=== PATIENT | female | born 1995 | race Caucasian/White ===

== ENCOUNTER 2017-01-01 22:27 | Emergency (ER) | payer MEDICAID ==
[2017-01-01] MEDS ORDERED: KETOROLAC TROMETHAMINE 30 MG/ML VIAL IV ONE (23:36)
--- NOTE | 2017-01-01 23:36 | ERNOTE ---
Headache ER HPI - General Presenting Symptoms: headache Time Seen by Provider: 01/01/17 23:32 Source: patient Exam Limitations: no limitations - Immun/Allergies/Home Medications Immunizations: IMMUNIZATION HX Immunizations Up to Date Yes History of Influenza Vaccine Yes Hx Pneumococcal Vaccination No Allergies/Adverse Reactions: Allergies No Known Allergies Allergy (Verified 01/01/17 22:43) Home Medications: HOME MEDICATIONS Hydrochlorothiazide 12.5 mg PO DAILY 06/20/15 [Last Taken Unknown] - Pain Pain Score: 5 - History of Present Illness Narrative: Pt complains of headache x 2 days. Started in her forehead and had progressed to her face Timing of Headache: gradual Context Headache: Present: new onset Quality: Present: pressure Severity Maximum: Present: moderate Severity-Currently: Present: moderate Headache frequency: Present: occasional headaches Review of Systems - Review of Systems Constitutional: Present: recent illness - Otitis media 2 weeks ago EYE: Absent: vision changes ENT: Present: See HPI Respiratory: Absent: cough Cardiology: Present: no symptoms reported Gastrointestinal/Abdominal: Present: no symptoms reported Genitourinary: Present: no symptoms reported Musculoskeletal: Present: no symptoms reported Skin: Present: no symptoms reported - Patient's Past Medical History Patient History - Medical: Migraines Patient History - Cardiac/Respiratory: Hypertension Patient History - Cancer: No Hx of Cancer Patient History - Surgical Procedures: Other Patient History - Other: None LMP (females 10-50): unknown nexplanon - Social History Living Situations: home Abuse History: No History of abuse Psych History: Hx of Anxiety, Hx of Depression, Hx of Bipolar Disorder Smoking Status: Never smoker Alcohol Use: none Drug Use: none - Immunizations Immunizations Up to Date: Yes Hx Pneumococcal Vaccination: No History of Influenza Vaccine: Yes Physical Exam - Physical Exam General Appearance: Present: wd/wn, alert, mild distress Head Exam: Present: normal inspection, no evidence of injury Eye Exam: Normal inspection: bilateral, PERRL: bilateral, EOMI: bilateral Ears, Nose, Throat: Present: nasal congestion - mild, normal pharynx Neck: Present: normal inspection, nontender Respiratory: Present: no respiratory distress, no accessory muscle use, lungs clear Cardiovascular/Chest: Present: regular rate, rhythm Extremity Exam: Present: normal inspection, no edema Neurological Exam: Present: alert, oriented, normal mood/affect Skin Exam: Present: normal color, warm/dry Lymphatic Exam: Present: no adenopathy ED Progress - Vital Signs Vital Signs: Vital Signs 01/01/17 22:39 Temperature 36.6 C Pulse Rate 95 Respiratory 18 Rate Blood Pressure 152/103 O2 Sat by Pulse 100 Oximetry - Progress/Reassessment Chief Complaint: Headache Departure Clinical Impression: Sinus headache - Departure Disposition: Home self-care Condition: Good Instructions: Sinus Headache Additional Instructions: Take mucinex-d 600 mg twice a day. Buy a sinus rinse kit and flush your sinuses 1-2 times a day. See your regular doctor if not improving
[2017-01-01] MEDS ORDERED: KETOROLAC TROMETHAMINE 30 MG/ML VIAL ONE (23:40)
--- OUTSIDE RECORDS SUMMARY | 2017-01-01 23:48 | XMS REPORT | Clinical Summary ---
:1995 Author Organization [facility] [place] [address] Care Team Providers Name Role Phone Unavailable Primary Care Provider Unavailable Source Comments This disclosure is being made pursuant to the [facility] program and maynot contain all information available regarding this patient.[facility] Allergies Active Allergy Reactions Severity Noted Date Comments Food Anaphylaxis High 08/23/2014 NUTS Current Medications Be aware that medications may not be up to date as of this document. Alwaysverify current medications with the patient. Prescription Sig. Disp. Refills Start Date End Date Status ALBUTEROL SULFATE HFA IN Inhale 2 puffs into Active the lungs every 4 (four) to 6 (six) hours as needed. lisinopril-hydrochlorothi Take 1 tablet by Active azide mouth daily. (PRINZIDE,ZESTORETIC) 10-12.5 MG per tablet fluticasone (FLOVENT HFA) Inhale 1 puff into Active 110 MCG/ACT inhaler the lungs 2 (two) times daily. EPINEPHrine (EPIPEN IJ) Inject as Active directed. Etonogestrel (NEXPLANON) Inject into the Active 68 MG IMPL skin. Active Problems Problem Noted Date Abdominal pain, right upper quadrant 04/29/2011 Overview: Overview: DELBERT RAO MD Abdominal tenderness, right upper quadrant 04/29/2011 Overview: Overview: DELBERT RAO MD Chronic nonalcoholic liver disease 04/29/2011 Overview: Overview: normal lft, seen on US DELBERT RAO MD Family History Medical History Relation Name Comments Asthma Father Hypertension Father Diabetes type II Maternal Grandfather Heart disease Maternal Grandfather Kidney failure Maternal Grandfather Aneurysm Maternal Grandmother Diabetes type II Mother Hypertension Mother Colon cancer Paternal Grandfather Hypertension Sister Diabetes type II Sister Relation Name Status Comments Father Maternal Grandfather Maternal Grandmother Mother Paternal Grandfather Sister Sister Social History Tobacco Use Types Packs/Day Years Used Date Never Smoker Smokeless Tobacco: Never Used Alcohol Use Drinks/Week oz/Week Comments No Sex Assigned at Date Recorded Not on file Last Filed Vital Signs Vital Sign Reading Time Taken Blood Pressure 148/52 08/24/2014 1:15 PM CDT Pulse 84 08/24/2014 1:15 PM CDT Temperature 36.9 C (98.4 F) 08/24/2014 1:15 PM CDT Respiratory Rate - - Oxygen Saturation - - Inhaled Oxygen Concentration - - Weight 142.6 kg (314 lb 6.4 oz) 09/09/2014 10:32 AM CDT Height 177.8 cm (5' 10") 08/24/2014 1:15 PM CDT Body Mass Index 45.11 09/09/2014 10:32 AM CDT Plan of Treatment Health Maintenance Due Date Last Done Comments HPV Vaccine ([id number],M: 9-22) (1 of 3 - Female 3 Dose 2005 Series) CHLAMYDIA SCREENING 2010 Tetanus/Pertussis (1 - Tdap) 2013 Pap Smear 2015 INFLUENZA IMMUNIZATION (#1) 2016 Results Not on filefrom Last 3 Months Insurance Payer Benefit Plan / Subscriber ID Type Phone Address Group [place] [id number] [place] [phone] [address] [place] [address]
[2017-01-02] MEDS ORDERED: ORPHENADRINE CITRATE 30 MG/ML VIAL IV ONE (00:57)
[2017-01-02] MEDS ORDERED: ORPHENADRINE CITRATE 30 MG/ML VIAL ONE (01:00)
[2017-01-02 01:48] VITALS: BP 152/94
== END 2017-01-02 01:47 | disposition home or self-care (01) ==
LOC: ER 22:27
DX: G44.89 Other headache syndrome (principal); I10 Essential (primary) hypertension

== ENCOUNTER 2017-04-21 19:38 | Emergency (ER) | payer MEDICAID ==
[2017-04-21] MEDS ORDERED: ALBUTEROL SULFATE 2.5 MG/0.5 ML VIAL.NEB IH ONE ×2 (20:02)
--- NOTE | 2017-04-21 20:06 | ERNOTE ---
Dyspnea - General Presenting Symptoms: shortness of breath Time Seen by Provider: 04/21/17 19:59 Source: patient Exam Limitations: no limitations - Immun/Allergies/Home Medications Immunizations: IMMUNIZATION HX Immunizations Up to Date Yes History of Influenza Vaccine No Hx Pneumococcal Vaccination No Allergies/Adverse Reactions: Allergies No Known Allergies Allergy (Verified 04/21/17 19:47) Home Medications: HOME MEDICATIONS Hydrochlorothiazide 12.5 mg PO DAILY 06/20/15 [Last Taken Unknown] Albuterol Sulfate [Ventolin HFA] 1 puff IH Q6H PRN #1 inhaler 04/21/17 [Last Taken Unknown] Etonogestrel [Nexplanon] 68 mg SQ DAILY 04/21/17 [Last Taken Unknown] Sertraline HCl [Zoloft] 25 mg PO DAILY 04/21/17 [Last Taken Unknown] - History of Present Illness Narrative: Pt states she has been short of breath for 4-5 days. minimal cough. Severity: mild, moderate Treatment SOLAR ENGINEER: by patient Initiating event: Reports: unknown Frequency of episodes: Reports: no prior episodes Modifying Factors - (Improves): Reports: nothing Modifying Factors (Worsens): Reports: activity Review of Systems - Review of Systems Constitutional: Absent: recent illness, fever, chills EYE: Present: no symptoms reported ENT: Absent: nose congestion, nasal drainage Respiratory: Present: See HPI, cough. Absent: wheezing Cardiology: Present: chest pain - today with deep breath Gastrointestinal/Abdominal: Absent: nausea, vomiting Genitourinary: Present: no symptoms reported Musculoskeletal: Absent: muscle pain, muscle stiffness Skin: Absent: rash Neurological: Absent: dizziness/light-headedness Endocrine: Absent: excessive sweating Hematologic/Lymphatic: Present: no symptoms reported Psych: Present: no symptoms reported - Patient's Past Medical History Patient History - Medical: Migraines Patient History - Cardiac/Respiratory: Hypertension Patient History - Cancer: No Hx of Cancer Patient History - Surgical Procedures: T & A, Orthopedic Patient History - Other: None LMP (females 10-50): nexplanon - Social History Living Situations: home Abuse History: No History of abuse Psych History: Hx of Anxiety, Hx of Depression, Hx of Bipolar Disorder, Current tx/ever been on anti-depressants or anti-anxiety meds Smoking Status: Never smoker Alcohol Use: none Drug Use: none - Immunizations Immunizations Up to Date: Yes Hx Pneumococcal Vaccination: No History of Influenza Vaccine: No Physical Exam - Physical Exam General Appearance: Present: wd/wn, alert, no apparent distress Head Exam: Present: normal inspection, no evidence of injury Eye Exam: Normal inspection: bilateral, PERRL: bilateral Ears, Nose, Throat: Present: normal ENT inspection Respiratory: Present: no respiratory distress, wheezing - expiratory mostly on the right Back Exam: Present: normal inspection, normal range of motion Extremity Exam: Present: normal inspection, normal range of motion, no edema Neurological Exam: Present: alert, oriented, no motor/sensory deficits Skin Exam: Present: normal color, warm/dry Lymphatic Exam: Present: no adenopathy ED Progress - Results and Orders Patient's Lab Results:: I have reviewed the patient's lab results. Results and Orders: Laboratory Tests 04/21/17 04/21/17 04/21/17 20:10 20:10 20:10 WBC 9.4 Hgb 14.1 Hct 39.9 Plt Count 194 Sodium 139 Potassium 3.9 Chloride 104 Carbon Dioxide 23.6 L Anion Gap 15.3 H BUN 9 Creatinine 0.66 Random Glucose 159 H Calcium 8.8 Total Bilirubin 0.4 AST 11 ALT 38 Alkaline Phosphatase 92 Total Protein 7.1 Albumin 3.5 Serum HCG, Qual Negative - Vital Signs Patient's Vital Signs:: I have reviewed the patient's vital signs. Vital Signs: Vital Signs 04/21/17 04/21/17 19:41 19:59 Temperature 37.1 C Pulse Rate 98 97 Respiratory 24 H Rate Blood Pressure 165/94 O2 Sat by Pulse 99 Oximetry - X-Ray X-Ray #1 X-Ray: chest Interpretation: Reviewed by me X-ray Comments: Findings: The lungs are clear bilaterally. There is no consolidation , pleural effusion or pneumothorax. Cardiac silhouette and pulmonary vasculature are normal. The osseous structures are normal. IMPRESSION: NORMAL CHEST. Electronically signed by Jerod Garcia D.O.. - Progress/Reassessment Chief Complaint: Dyspnea Departure Clinical Impression: Bronchitis - Departure Disposition: Home self-care Condition: Good Instructions: Acute Bronchitis, [id number] Additional Instructions: See your primary care provider if not improving in 5-7 days or if worsening. Return to ER as needed. Referrals: Tiffanie Zavala APN [Primary Care Provider] - Prescriptions: Albuterol Sulfate [Ventolin HFA] 1 puff IH Q6H PRN #1 inhaler PRN Reason: Shortness Of Breath
[2017-04-21 20:13] LABS: Hematocrit 39.9 % (37.0-47.0); Hemoglobin 14.1 gm/dL (12.5-16.0); Mean Cell Volume 83.8 fl (78-100); Mean Corpuscular Hemoglobin 29.6 pg (27-31); Mean Corpuscular Hgb Conc 35.3 g/dl (32-36); Mean Platelet Volume 11.2 fl (6.0-9.5); Neutrophil # 5.1 K/mm3 (1.3-6.0); Neutrophil % 54.8 % (42-75.0); Platelet Count 194 K/mm3 (150-450); Red Blood Count 4.76 M/mm3 (4.2-5.4); White Blood Count 9.4 K/mm3 (4.0-10.5)
[2017-04-21 20:32] LABS: Albumin * 3.5 gm/dl (3.4-5.0); Anion Gap 15.3 mmol/L (6.8-13.8); BUN/Creatinine Ratio 13.6 (9.0-21.6); Bilirubin, Total 0.4 mg/dL (0.0-1.1); Ca. Corrected For Albumin 8.9 mg/dL (8.4-10.2); Calcium * 8.8 mg/dL (7.9-10.9); Carbon Dioxide 23.6 mmol/L (24-32.6); Potassium 3.9 mmol/L (3.4-4.6); Total Protein 7.1 gm/dL (6.2-8.2)
[2017-04-21 23:03] VITALS: BP 140/78
== END 2017-04-21 23:01 | disposition home or self-care (01) ==
LOC: ER 19:38
DX: J40 Bronchitis, not specified as acute or chronic (principal); F41.9 Anxiety disorder, unspecified